=== PATIENT | female | born 1990 | race Caucasian/White ===

== ENCOUNTER 2018-08-11 08:57 | Emergency (ER) | payer MEDICAID ==
[~2018-08-11] VITALS: Ht 170.2 cm; Wt 64.0 kg
[~2018-08-11 08:57] MED LIST: HYDR-4353 PO
[2018-08-11 09:03] VITALS: BP 118/70
[2018-08-11] MEDS ORDERED: HYDR-4353 PO ×2 (10:05→12:35)
== END 2018-08-11 10:16 | disposition home or self-care (01) ==
LOC: ER 08:57
DX: S52.121D Displaced fracture of head of right radius, subsequent encounter for closed fracture with routine healing (principal); X58.XXXD Exposure to other specified factors, subsequent encounter
CPT/HCPCS: 99283

== ENCOUNTER → 2019-03-30 | Emergency (ER) | payer MEDICAID ==
[~2019-03-30] VITALS: Ht 170.2 cm; Wt 75.0 kg
[~2019-03-30] MED LIST changes: +HYDR-3965 PO; -HYDR-4353 PO; +HYDR-4383 PO; +HYDROcodone/acetaminophen 5mg/325mg tablet PO ONE; +IBUP-1985 PO; +ketorolac trometh inj. 60 MG/2 ML VIAL IM ONE
[2019-03-30 13:34] VITALS: BP 147/90
[2019-03-30 13:58] LABS: URINE HCG NEGATIVE (NEG)
== END | disposition home or self-care (01) ==
LOC: ER 12:41
DX: S63.92XA Sprain of unspecified part of left wrist and hand, initial encounter (principal); S93.402A Sprain of unspecified ligament of left ankle, initial encounter; M25.552 Pain in left hip; M25.562 Pain in left knee; X50.1XXA Overexertion from prolonged static or awkward postures, initial encounter; Y93.89 Activity, other specified; Y92.89 Other specified places as the place of occurrence of the external cause; Y99.9 Unspecified external cause status
CPT/HCPCS: 29125; 73080; 73110; 73130; 73502; 73564; 73610; 81025; 96372; 99284; J1885

== ENCOUNTER 2019-07-15 09:15 | Emergency (ER) | payer MEDICAID ==
[~2019-07-15] VITALS: Ht 261.6 cm; Wt 81.4 kg
[~2019-07-15 09:15] MED LIST changes: -HYDR-3965 PO; -HYDR-4383 PO; -HYDROcodone/acetaminophen 5mg/325mg tablet PO ONE; -ketorolac trometh inj. 60 MG/2 ML VIAL IM ONE
[2019-07-15 09:19] VITALS: BP 121/76
[2019-07-15] MEDS ORDERED: CYCL-1 PO (09:32)
[2019-07-15] MEDS ORDERED: NAPR-56 PO (09:32)
[2019-07-15] MEDS ORDERED: ketorolac trometh. 30mg/ml inj. IM ONE (09:35)
== END 2019-07-15 09:53 | disposition home or self-care (01) ==
LOC: ER 09:15
DX: S39.012A Strain of muscle, fascia and tendon of lower back, initial encounter (principal); M62.830 Muscle spasm of back; Z79.899 Other long term (current) drug therapy; X58.XXXA Exposure to other specified factors, initial encounter; Y93.89 Activity, other specified; Y92.89 Other specified places as the place of occurrence of the external cause; Y99.8 Other external cause status
CPT/HCPCS: 96372; 99283; J1885

== ENCOUNTER 2020-12-25 19:45 | Emergency (ER) | payer MEDICAID ==
[~2020-12-25] VITALS: Ht 170.2 cm; Wt 77.3 kg
[~2020-12-25 19:45] MED LIST changes: +CYCL-1 PO
[2020-12-25] MEDS ORDERED: ondansetron/PF 4mg/2ml inj IV STA (19:53)
[2020-12-25] MEDS ORDERED: normal saline 1000ml 1,000 ML IVB ONE (19:55)
[2020-12-25 20:19] LABS: URINE HCG NEGATIVE (NEG)
[2020-12-25 20:20] LABS: CLARITY,URINE CLOUDY (Clear); COLOR,URINE AMBER (Yellow); GLUCOSE, URINE NEGATIVE (Neg); KETONES,URINE 15 mg/dl (Neg); LEUKOCYTE ESTERASE ,URINE SMALL (Neg); NITRITES, URINE NEGATIVE (Neg); OCCULT BLOOD,URINE LARGE (Neg); PROTEIN,URINE 100 mg/dl (Neg)
[2020-12-25] MEDS ORDERED: glycopyrrolate 0.2mg/ml inj IV ONE (20:20)
[2020-12-25 20:23] LABS: RED CELL DISTRIBUTION WIDTH 16.3 % (11.5-14.5); WHITE BLOOD COUNT 8.6 X10'3 (4.5-11.0)
[2020-12-25 20:25] LABS: BASOPHILS # (AUTO) 0.1 X10'3 (0-0.2); BASOPHILS % (AUTO) 0.6 % (0-1); EOSINOPHILS % (AUTO) 0.2 % (0-6); HEMATOCRIT 46.3 % (35.0-45.0); LYMPHOCYTES % (AUTO) 12.1 % (21-51); MEAN CORPUSCULAR HEMOGLOBIN 36.2 PG (27.0-31.0); MEAN CORPUSCULAR HGB CONC 34.6 g/dL (33.0-36.5); MEAN CORPUSCULAR VOLUME 104.6 FL (78-98); MEAN PLATELET VOLUME 9.1 FL (7.4-10.4); MONOCYTES # (AUTO) 0.8 X10'3 (0-0.9); MONOCYTES % (AUTO) 8.9 % (2-12); NEUTROPHILS # (AUTO) 6.7 X10'3 (1.8-7.7); NEUTROPHILS % (AUTO) 78.2 % (42-75); PLATELET COUNT 227 X10'3 (140-440); RED BLOOD COUNT 4.43 X10'6 (4.20-5.60)
[2020-12-25 20:39] LABS: UA COLLECTION TYPE CLN CATCH MIDSTREAM
[2020-12-25 20:40] LABS: BACTERIA,URINE 2+ /HPF (Neg); MUCUS STRANDS MANY /LPF (Neg); SQUAMOUS EPITHELIAL CELL,UR MANY /LPF (FEW); WBC,URINE 20-30 /HPF (0-4); YEAST FEW /HPF (NEGATIVE)
[2020-12-25 20:42] LABS: ALANINE AMINOTRANSFERASE 96 U/L (12-78); ALBUMIN 4.5 G/DL (3.4-5.0); ALBUMIN/GLOBULIN RATIO 1.1 (1.1-1.5); ALKALINE PHOSPHATASE 97 IU/L (46-116); AMYLASE 28 U/L (25-115); ANION GAP 14 (8-16); ASPARTATE AMINO TRANSFERASE 334 U/L (10-37); BILIRUBIN,TOTAL 1.1 MG/DL (0.1-1.0); BLOOD UREA NITROGEN 7 MG/DL (7-18); CHLORIDE 101 MMOL/L (99-107); CREATININE 0.78 MG/DL (0.40-0.90); GLUCOSE 119 MG/DL (70-104); LIPASE 180 U/L (73-393); POTASSIUM 3.6 MMOL/L (3.5-5.1); SODIUM 141 MMOL/L (135-145); TOTAL CARBON DIOXIDE 25.8 MMOL/L (24-32); TOTAL PROTEIN 8.5 G/DL (6.4-8.2); eGFR 87 ML/MIN
[2020-12-25 20:46] LABS: ETHANOL < 0.010 GM/DL (0.0-0.010)
[2020-12-25] MEDS ORDERED: CefTRIAXone 2gm/D5W 50ml BAG 50 ML IV ONE (21:10)
[2020-12-25] MEDS ORDERED: ONDA4TAB12 PO (21:15)
[2020-12-25] MEDS ORDERED: CEPH-585 PO (21:15)
[2020-12-25 21:32] VITALS: BP 146/87
== END 2020-12-25 21:34 | disposition home or self-care (01) ==
LOC: ER 19:46
DX: R10.13 Epigastric pain (principal); E86.0 Dehydration; N39.0 Urinary tract infection, site not specified; R11.2 Nausea with vomiting, unspecified; R19.7 Diarrhea, unspecified; Z79.2 Long term (current) use of antibiotics; Z79.899 Other long term (current) drug therapy
CPT/HCPCS: 80053; 80320; 81001; 81025; 82150; 83690; 85025; 96361; 96374; 96375; 99284; J2405; J7030; J3490

== ENCOUNTER 2021-01-12 08:31 | Emergency (ER) | payer MEDICAID ==
[~2021-01-12] VITALS: Ht 170.2 cm; Wt 77.3 kg
[~2021-01-12 08:31] MED LIST changes: +CEPH-585 PO; +ONDA4TAB12 PO
[2021-01-12 09:05] VITALS: BP 152/109
[2021-01-12 09:58] LABS: BASOPHILS % (AUTO) 0.7 % (0-1); EOSINOPHILS # (AUTO) 0.3 X10'3 (0-0.9); EOSINOPHILS % (AUTO) 4.5 % (0-6); HEMATOCRIT 44.4 % (35.0-45.0); HEMOGLOBIN 15.2 g/dl (12.0-16.0); LYMPHOCYTES # (AUTO) 0.8 X10'3 (1.1-4.8); LYMPHOCYTES % (AUTO) 12.7 % (21-51); MEAN CORPUSCULAR HEMOGLOBIN 36.2 PG (27.0-31.0); MEAN CORPUSCULAR HGB CONC 34.2 g/dL (33.0-36.5); MEAN CORPUSCULAR VOLUME 105.8 FL (78-98); MEAN PLATELET VOLUME 9.3 FL (7.4-10.4); MONOCYTES # (AUTO) 0.5 X10'3 (0-0.9); MONOCYTES % (AUTO) 8.3 % (2-12); NEUTROPHILS # (AUTO) 4.6 X10'3 (1.8-7.7); NEUTROPHILS % (AUTO) 73.8 % (42-75); PLATELET COUNT 211 X10'3 (140-440); RED BLOOD COUNT 4.19 X10'6 (4.20-5.60); RED CELL DISTRIBUTION WIDTH 15.7 % (11.5-14.5); WHITE BLOOD COUNT 6.3 X10'3 (4.5-11.0)
[2021-01-12 10:04] LABS: ALANINE AMINOTRANSFERASE 72 U/L (12-78); ALBUMIN 4.1 G/DL (3.4-5.0); ALKALINE PHOSPHATASE 116 IU/L (46-116); ANION GAP 10 (8-16); ASPARTATE AMINO TRANSFERASE 106 U/L (10-37); BILIRUBIN,TOTAL 1.3 MG/DL (0.1-1.0); BLOOD UREA NITROGEN 8 MG/DL (7-18); BUN/CREATININE RATIO 10.4 (6.6-38.0); CALCIUM 8.7 MG/DL (8.5-10.1); CHLORIDE 100 MMOL/L (99-107); CREATININE 0.77 MG/DL (0.40-0.90); GLUCOSE 104 MG/DL (70-104); LIPASE 140 U/L (73-393); POTASSIUM 4.7 MMOL/L (3.5-5.1); SODIUM 141 MMOL/L (135-145); TOTAL CARBON DIOXIDE 30.6 MMOL/L (24-32); TOTAL PROTEIN 8.1 G/DL (6.4-8.2); eGFR 89 ML/MIN
[2021-01-12 10:20] LABS: CLARITY,URINE CLOUDY (Clear); PH,URINE 6.5 (4.8-8.0); PROTEIN,URINE 100 mg/dl (Neg)
[2021-01-12 10:21] LABS: GLUCOSE, URINE NEGATIVE (Neg); KETONES,URINE >=80 mg/dl (Neg); LEUKOCYTE ESTERASE ,URINE LARGE (Neg); NITRITES, URINE POSITIVE (Neg); OCCULT BLOOD,URINE MODERATE (Neg)
[2021-01-12 10:23] LABS: URINE HCG NEGATIVE (NEG)
[2021-01-12 10:39] LABS: UA COLLECTION TYPE CLN CATCH MIDSTREAM
[2021-01-12 10:41] LABS: COLOR,URINE AMBER (Yellow); WBC,URINE TNTC /HPF (0-4)
[2021-01-12 10:42] LABS: BACTERIA,URINE 3+ /HPF (Neg); MUCUS STRANDS MODERATE /LPF (Neg); SQUAMOUS EPITHELIAL CELL,UR MODERATE /LPF (FEW); WBC CLUMPS,URINE MODERATE /HPF (NEGATIVE)
[2021-01-12] MEDS ORDERED: IBUP-1986 PO ×3 (12:12→12:32)
[2021-01-12] MEDS ORDERED: CEFD300C3 PO ×3 (12:12→12:32)
== END 2021-01-12 13:06 | disposition home or self-care (01) ==
LOC: ER 08:31
DX: N39.0 Urinary tract infection, site not specified (principal); R30.0 Dysuria; E86.0 Dehydration; R10.30 Lower abdominal pain, unspecified; Z79.2 Long term (current) use of antibiotics; Z79.899 Other long term (current) drug therapy
CPT/HCPCS: 36415; 74176; 80053; 81001; 81025; 83690; 85025; 87077; 87088; 87186; 99284

== ENCOUNTER 2023-03-21 23:08 | Emergency (ER) | payer MEDICAID, OTHER ==
[~2023-03-21] VITALS: Ht 170.2 cm; Wt 66.4 kg
[~2023-03-21 23:08] MED LIST changes: +CEFD300C3 PO; -CEPH-585 PO; +IBUP-1986 PO
--- NOTE | 2023-03-21 23:14 | NUR ---
aravind nurse engine emission technician notified. [facility] safe [facility] notified and sending an advocate to er.
[2023-03-21 23:33] VITALS: BP 156/100; PULSE 115; RESP 19; TEMP 98; O2SAT 98
[2023-03-22] MEDS ORDERED: CefTRIAXone 500MG IM Kit w/LIDOcaine (for pt below or = to 150kg) IM ONE (00:25)
[2023-03-22] MEDS ORDERED: azithromycin 250mg tablet PO ONE (00:25)
[2023-03-22] MEDS ORDERED: TINIDAZOLE 500 MG TABLET PO ONE (00:25)
[2023-03-22] MEDS ORDERED: LEVONORGESTREL 1.5MG tablet 1.5 MG TABLET PO ONE (00:25)
[2023-03-22 03:27] LABS: URINE HCG NEGATIVE (NEG)
[2023-03-22 03:30] LABS: BILIRUBIN,URINE NEGATIVE (Neg); CLARITY,URINE SLIGHTLY CLOUDY (Clear); COLOR,URINE YELLOW (Yellow); GLUCOSE, URINE NEGATIVE (Neg); KETONES,URINE NEGATIVE (Neg); LEUKOCYTE ESTERASE ,URINE NEGATIVE (Neg); NITRITES, URINE NEGATIVE (Neg); OCCULT BLOOD,URINE TRACE-INTACT (Neg); PH,URINE 7.5 (4.8-8.0); PROTEIN,URINE TRACE mg/dl (Neg); UROBILINOGEN,URINE 0.2 E.U/dL (0.2-1.0)
[2023-03-22 03:38] LABS: UA COLLECTION TYPE VOIDED
[2023-03-22 03:40] LABS: AMORPHOUS PHOSPHATES 2+; BACTERIA,URINE 4+ /HPF (Neg); RBC,URINE 0-2 /HPF (0-2); SQUAMOUS EPITHELIAL CELL,UR NONE SEEN /LPF (FEW); WBC,URINE NONE SEEN /HPF (0-4)
== END 2023-03-22 03:49 | disposition home or self-care (01) ==
LOC: EEVIPCON 23:08 → ER 23:08
DX: Z04.41 Encounter for examination and observation following alleged adult rape (principal); F17.200 Nicotine dependence, unspecified, uncomplicated; Z79.2 Long term (current) use of antibiotics; Z79.1 Long term (current) use of non-steroidal anti-inflammatories (NSAID); Z79.899 Other long term (current) drug therapy
CPT/HCPCS: 81001; 81025; 87088; 87186; 96372; 99284; J0696; 87077

== ENCOUNTER 2023-05-01 13:48 | Emergency (ER) | payer MEDICAID, OTHER ==
[~2023-05-01] VITALS: Ht 170.2 cm; Wt 62.2 kg
[2023-05-01 14:02] VITALS: TEMP 98.6
[2023-05-01 14:31] LABS: BASOPHILS % (AUTO) 0.6 % (0-1); EOSINOPHILS % (AUTO) 0.6 % (0-6); HEMATOCRIT 46.2 % (35.0-45.0); HEMOGLOBIN 16.1 g/dl (12.0-16.0); LYMPHOCYTES # (AUTO) 1.1 X10'3 (1.1-4.8); LYMPHOCYTES % (AUTO) 23.7 % (21-51); MEAN CORPUSCULAR HEMOGLOBIN 38.7 PG (27.0-31.0); MEAN CORPUSCULAR HGB CONC 34.9 g/dL (33.0-36.5); MEAN CORPUSCULAR VOLUME 110.9 FL (78-98); MEAN PLATELET VOLUME 8.9 FL (7.4-10.4); MONOCYTES # (AUTO) 0.4 X10'3 (0-0.9); MONOCYTES % (AUTO) 9.3 % (2-12); NEUTROPHILS # (AUTO) 3.2 X10'3 (1.8-7.7); NEUTROPHILS % (AUTO) 65.8 % (42-75); PLATELET COUNT 165 X10'3 (140-440); RED BLOOD COUNT 4.16 X10'6 (4.20-5.60); RED CELL DISTRIBUTION WIDTH 15.3 % (11.5-14.5); WHITE BLOOD COUNT 4.8 X10'3 (4.5-11.0)
[2023-05-01 14:45] LABS: ALANINE AMINOTRANSFERASE 54 U/L (12-78); ALBUMIN 4.7 G/DL (3.4-5.0); ALBUMIN/GLOBULIN RATIO 1.2 (1.1-1.5); ALKALINE PHOSPHATASE 108 IU/L (46-116); ANION GAP 17 (8-16); ASPARTATE AMINO TRANSFERASE 118 U/L (10-37); BILIRUBIN,TOTAL 1.9 MG/DL (0.1-1.0); BLOOD UREA NITROGEN 5 MG/DL (7-18); BUN/CREATININE RATIO 8.5 (10.0-20.0); CALCIUM 9.5 MG/DL (8.5-10.1); CHLORIDE 97 MMOL/L (99-107); CREATININE 0.59 MG/DL (0.40-0.90); ETHANOL < 10 MG/DL (<10); GLUCOSE 87 MG/DL (70-104); POTASSIUM 3.5 MMOL/L (3.5-5.1); SODIUM 136 MMOL/L (135-145); TOTAL CARBON DIOXIDE 22.4 MMOL/L (24-32); TOTAL PROTEIN 8.7 G/DL (6.4-8.2); eCRCL 134 ML/MIN; eGFR > 90 ML/MIN
[2023-05-01] MEDS ORDERED: CHLO25CA10 PO ×3 (15:11→15:15)
[2023-05-01] MEDS ORDERED: ONDA4TAB12 PO ×3 (15:11→15:15)
[2023-05-01] MEDS ORDERED: ondansetron 4mg rapidly disintigrating tab PO ONE (15:15)
[2023-05-01] MEDS ORDERED: chlordiazePOXIDE 25mg capsule PO ONE (15:15)
[2023-05-01 17:05] LABS: URINE HCG NEGATIVE (NEG)
[2023-05-01 17:10] LABS: BILIRUBIN,URINE SMALL (Neg); CLARITY,URINE CLEAR (Clear); COLOR,URINE YELLOW (Yellow); GLUCOSE, URINE NEGATIVE (Neg); KETONES,URINE >=80 mg/dl (Neg); LEUKOCYTE ESTERASE ,URINE NEGATIVE (Neg); NITRITES, URINE NEGATIVE (Neg); OCCULT BLOOD,URINE MODERATE (Neg); PH,URINE 5.5 (4.8-8.0); PROTEIN,URINE 100 mg/dl (Neg); UROBILINOGEN,URINE 0.2 E.U/dL (0.2-1.0)
[2023-05-01 17:12] LABS: UA COLLECTION TYPE VOIDED
[2023-05-01 17:16] LABS: BACTERIA,URINE FEW /HPF (Neg); RBC,URINE 0-2 /HPF (0-2); SQUAMOUS EPITHELIAL CELL,UR MANY /LPF (FEW)
[2023-05-01 17:17] LABS: MUCUS STRANDS FEW /LPF (Neg); TRANSITIONAL EPI CELLS,URINE FEW /HPF
[2023-05-01 17:18] VITALS: BP 154/102; PULSE 82; RESP 18; O2SAT 97
[2023-05-01 17:26] LABS: URINE AMPHETAMINE SCREEN NEGATIVE (Neg); URINE BARBITUATE SCREEN NEGATIVE (Neg); URINE BENZODIAZEPINES SCREEN NEGATIVE (Neg); URINE CANNABINOID SCREEN NEGATIVE (Neg); URINE COCAINE SCREEN NEGATIVE (Neg); URINE METHADONE SCREEN NEGATIVE (Neg); URINE OPIATE SCREEN NEGATIVE (Neg); URINE PHENCYCLIDINE SCREEN NEGATIVE (Neg)
== END 2023-05-01 17:22 | disposition home or self-care (01) ==
LOC: ER 13:49
DX: F10.129 Alcohol abuse with intoxication, unspecified (principal); R11.0 Nausea; Y90.9 Presence of alcohol in blood, level not specified
CPT/HCPCS: 36415; 80053; 80305; 80320; 81001; 81025; 85025; 99283